=== PATIENT | male | born 1955 | race Caucasian/White ===

== ENCOUNTER 2018-04-30 16:28 | Emergency (ER) | payer SELFPAY ==
[~2018-04-30] VITALS: Ht 180.3 cm; Wt 69.9 kg
[2018-04-30 16:49] VITALS: BP 132/66
[2018-04-30 18:15] LABS: Hematocrit 40.5 % (41.0-53.0); Hemoglobin 12.2 g/dL (13.5-17.5); Mean Corpuscular Hemoglobin 32.4 pg (28.0-32.0); Mean Corpuscular Hgb Conc. 30.1 g/dL (32.0-36.0); Mean Corpuscular Volume 107.7 fL (80.0-100.0); Red Blood Cells 3.76 10^6/uL (4.5-5.90); White Blood Cell 19.5 10^3/uL (4.4-10.8)
[2018-04-30 18:36] LABS: Albumin 3.4 g/dL (3.4-5.0); Potassium 5.2 mmol/L (3.5-5.1)
[2018-04-30 18:39] LABS: Bilirubin, Total 0.3 mg/dL (0.2-1.0); Red Cell Distribution Width 20.7 % (11.8-14.3); Total Protein 8.2 g/dL (6.4-8.2)
[2018-04-30 18:42] LABS: Platelet Count (auto) 1872 10^3/uL (140-450)
[2018-04-30 18:43] LABS: Band Neutrophils % (manual) 0; Basophils % (manual) 0 (0.0-2.0); Blast Cells 0; Metamyelocytes % 0; Myelocytes % 0; Promyelocytes % 0; Reactive Lymphocytes 0
[2018-04-30 18:47] LABS: Eosinophils % (manual) 4 (0-7); Lymphocytes % (manual) 3 (10.0-50.0); Monocytes % (manual) 3 (0-12)
== END 2018-04-30 21:15 | disposition left against medical advice (07) ==
LOC: ER 16:28
DX: R79.9 Abnormal finding of blood chemistry, unspecified (principal); Z53.21 Procedure and treatment not carried out due to patient leaving prior to being seen by health care provider
CPT/HCPCS: 36415; 80053; 85007; 85027